=== PATIENT | female | born 1970 | race Caucasian/White ===

== ENCOUNTER 2022-05-11 05:10 | Inpatient (IN) | payer MEDICAID ==
[~2022-05-11] VITALS: Ht 157.5 cm; Wt 64.6 kg
[2022-05-11] VITALS (15 sets, daily range): BP systolic 81–126; BP diastolic 45–88
--- NOTE | 2022-05-11 05:23 | NUR ---
BIB FRIEND FROM STREET WITH C/O ALOC, HEMATEMESIS, RECTAL BLEEDING. C/O ALOC x today. PT IS JAUNDICED. MOANS AND IS RESTLESS. PMHx: GI bleeding, Hematemesis, Anemia MEDS:MELOXICAM
--- NOTE | 2022-05-11 05:23 | NUR ---
PT TAKEN TO BED 11
--- NOTE | 2022-05-11 05:33 | NUR ---
Dr. Leslie examining patient.
--- NOTE | 2022-05-11 05:35 | NUR ---
COVID-19 swabs collected and sent to lab.
[2022-05-11 05:56] LABS: BASOPHILS % (AUTO) 0.3 % (0.0-2.0); LYMPHOCYTES # (AUTO) 2.4 K/uL (2.5-16.5); LYMPHOCYTES % (AUTO) 18.5 % (20.5-51.1); MEAN CORPUSCULAR HEMOGLOBIN 33 pg (27-31); MEAN CORPUSCULAR HGB CONC 33 g/dL (33-37); MEAN CORPUSCULAR VOLUME 101.3 fL (80-94); MONOCYTES # (AUTO) 0.3 K/uL (0.8-1.0); MONOCYTES % (AUTO) 2.5 % (1.7-9.3); NEUTROPHILS # (AUTO) 10.3 K/uL (1.8-7.7); NEUTROPHILS % (AUTO) 78.7 % (42.2-75.2); PLATELET COUNT (AUTO) 75 K/uL (140-450); RED BLOOD CELL COUNT(AUTO) 1.47 MIL/uL (4.20-5.40); RED CELL DISTRIBUTION WIDTH 16.1 % (11.6-13.7); WHITE BLOOD COUNT (AUTO) 13.1 K/uL (4.8-10.8)
[2022-05-11 06:06] LABS: HEMOGLOBIN 4.9 g/dL (12.0-16.0)
[2022-05-11 06:07] LABS: HEMATOCRIT 14.9 % (36-48)
--- NOTE | 2022-05-11 06:11 | NUR ---
Dr. Dominguez examining patient and started mid line left arm, 20 G.
[2022-05-11] MEDS ORDERED: NACL 0.9% 500 ML IV ONE (07:00)
[2022-05-11] MEDS ORDERED: MIDAZOLAM 2 MG/2 ML VIAL IVP ONE ×2 (07:00→08:05)
[2022-05-11 07:02] LABS: ALBUMIN 1.4 g/dL (3.4-5.0); ANION GAP 27.4 (8-16); ASPARTATE AMINOTRANSFERASE 95 U/L (15-37); CARBON DIOXIDE 9.3 mmol/L (21-32); CHLORIDE 106 mmol/L (98-107); CREATININE 3.3 mg/dL (0.6-1.3); GFR ARICAN-AMERICAN 19 mL/min (>90); GLUCOSE 71 mg/dL (74-106); POTASSIUM 3.7 mmol/L (3.5-5.1); SODIUM SERUM 139 mmol/L (136-145); TOTAL BILIRUBIN 9.5 mg/dL (0.0-1.0); UREA NITROGEN, BLOOD 55 mg/dL (7-18)
[2022-05-11 07:06] LABS: ACETAMINOPHEN < 0.5 ug/ml (10-30); SALICYLATE < 2.8 mg/dL (2.8-20.0)
--- NOTE | 2022-05-11 07:17 | NUR ---
Report and continuation of care received from RAMÓN Perez
--- NOTE | 2022-05-11 07:30 | NUR ---
Per blood bank, ETA for packed cells 1 units 30-45 minutes
--- NOTE | 2022-05-11 07:31 | NUR ---
Received patient with BP 116/68, HR 69, RR 16.
--- NOTE | 2022-05-11 07:31 | NUR ---
Patient A&Ox0, restless. Left AC IV site patent with NS 500mL BOLUS.
[2022-05-11] MEDS ORDERED: DEXTROSE 50% 50 ML SYR IVP ONE ×4 (07:37→08:30)
--- NOTE | 2022-05-11 07:37 | NUR ---
Cady CHAN. Dr. Dominguez made aware and orders to be place.
--- NOTE | 2022-05-11 07:38 | NUR ---
IV site to left AC cool to the touch. Dr. Dominguez made aware and new orders to be placed.
[2022-05-11] MEDS ORDERED: GLUCAGON 1 MG VIAL ONE (07:40)
[2022-05-11] MEDS ORDERED: GLUCAGON 1 MG VIAL IM ONE (07:40)
--- NOTE | 2022-05-11 07:43 | NUR ---
Repeat AccuChek 24
[2022-05-11 07:44] LABS: PROTHROMBIN TIME 36.7 secs (10.8-13.4)
--- NOTE | 2022-05-11 07:45 | NUR ---
Dr. Dominguez at bedside
[2022-05-11] MEDS ORDERED: MIDAZOLAM 2 MG/2 ML VIAL ONE (08:01)
--- NOTE | 2022-05-11 08:04 | NUR ---
D50% given per Dr. Dominguez's orders to new IV right forearm 20G. Cady @ 0800
--- NOTE | 2022-05-11 08:05 | NUR ---
Left AC IV d/c and secured with 4x4 gauze/tape.
--- NOTE | 2022-05-11 08:10 | NUR ---
Unable to obtain ABG; RT to reattempt
--- NOTE | 2022-05-11 08:17 | NUR ---
RT at bedside unable to obtain ABG. \
[2022-05-11] MEDS ORDERED: ROCURONIUM 50 MG/5 ML VIAL IV ONE (08:20)
[2022-05-11] MEDS ORDERED: ETOMIDATE 20 MG/10 ML VIAL IVP ONE (08:20)
--- NOTE | 2022-05-11 08:20 | NUR ---
Cady Dominguez at bedside.
--- NOTE | 2022-05-11 08:20 | NUR ---
# 16 FR Marlow catheter with 10 ml utilizing sterile technique. Immediate return of 275 ml viral/cloudy urine noted. Bedside drainage bag placed below level of bladder. Urine sample collected and sent to lab. Pt tolerated procedure well.
[2022-05-11] MEDS ORDERED: INTUBATION KIT MC ONE (08:21)
--- NOTE | 2022-05-11 08:25 | NUR ---
PT INTUBATED D/T AIRWAY PROTECTION. GLYDOSCOPE USED BY DR. KRAUSE TO INSERT A 7.5 ETT LANDIONG AT 22 @ TEETH. BILATERAL CHEST RISE AND BREATH SOUNDS OBSERVED. CARESCAPE VENT STARTED ON AC/VC 500, RR 14, PEEP 5, FiO2 50%. PT TOLERATES THESE SETTINGS WELL. WILL CONTINUE TO MONITOR.
--- NOTE | 2022-05-11 08:26 | NUR ---
Etomidate 5mg IVP to 20G Left FA
--- NOTE | 2022-05-11 08:26 | NUR ---
Rocuronium 60mg IVP to 20G Left FA
--- NOTE | 2022-05-11 08:28 | NUR ---
Intubated ET 22 @ the teeth
--- NOTE | 2022-05-11 08:31 | NUR ---
AccuChek 15
--- NOTE | 2022-05-11 08:33 | NUR ---
Dr. Dominguez at bedside for central line placement
--- NOTE | 2022-05-11 08:34 | NUR ---
D50% given to IV site left FA.
--- NOTE | 2022-05-11 08:57 | NUR ---
RAD at bedside for tube placement
[2022-05-11] MEDS ORDERED: PROPOFOL 1000 MG/100 ML PREMIX 100 ML IV ONE (09:00)
[2022-05-11] MEDS ORDERED: DEXTROSE 10% 250 ML IV SCH (09:00)
--- NOTE | 2022-05-11 09:00 | NUR ---
Anatoly sung in place.
[2022-05-11 09:17] LABS: APPEARANCE,URINE CLOUDY (CLEAR); BILIRUBIN,URINE 3+ (NEGATIVE); BLOOD, URINE 1+ (NEGATIVE); COLOR,URINE BROWN (YELLOW); LEUKOCYTE ESTERASE ,URINE TRACE (NEGATIVE); NITRITE, URINE POSITIVE (NEGATIVE); PH,URINE 5.5 (5.0-9.0); UGLUCOSE TRACE (NEGATIVE)
--- NOTE | 2022-05-11 09:30 | NUR ---
Consent signed per emergent transfusion / ALOC, dual RN witnessed signtures obtaind for agreeing to administration of blood. Blood has been type and crossmatched. Blood sent from blood bank. Information on unit of blood checked against patient wristband at bedside by two nurses. All information matches. Patient or responsible democrat informed of potential complications associated with blood transfusion. Informed of possible transfusion reaction symptoms. Aware of need to notify nurse at once of itching, shortness of breath, flushing, feeling of impending doom, or other symptoms not previously present. Vital signs taken within 5 minutes prior to initiation of transfusion. RN will remain with patient for first 15 minutes of transfusion at which time vital signs will be re-assessed.
[2022-05-11 09:55] LABS: BARBITURATE, URINE NEGATIVE ng/ml (NEG <=200); BENZODIAZEPINE, URINE NEGATIVE ng/mL (NEG <=200); CANNABINOID, URINE POSITIVE ng/mL (NEG <=50); COCAINE, URINE NEGATIVE ng/mL (NEG <=300); OPIATE, URINE NEGATIVE ng/mL (NEG <=2000); PHENCYCLIDINE SCREEN,URINE NEGATIVE ng/mL (NEG <=25)
--- NOTE | 2022-05-11 10:00 | NUR ---
ASSISTED IN TRANSPORT OF PT FROM ER BED #[address] AND RETURNED TO BED #11, VENTILATOR IS PLUGGED INTO A RED OUTLET, AIRWAY IS PATENT
--- NOTE | 2022-05-11 10:02 | NUR ---
PATIENT TAKEN TO CT VIA [facility], ACCOMPANIED BY PRIMARY RN FITZ AND RT JOE, PATIENT ON PORTABLE SAP TECHNICAL DEVELOPER AND PULSE OX.
[2022-05-11 10:09] LABS: RBC,URINE 11-20 (MOD) /HPF (0-5); WBC,URINE 0-5 /HPF (0-5)
[2022-05-11] MEDS ORDERED: PIPERACILLIN/TAZOBACTAM 3.375 GM in DEXTROSE 5% 50 ML IV ONE (10:15)
--- NOTE | 2022-05-11 10:16 | NUR ---
Pt returned from CT accompanied by RT, tax map technician. Patient placed back onto awake overnight monitor.
--- NOTE | 2022-05-11 10:38 | NUR ---
RT at bedside for ABG
--- NOTE | 2022-05-11 10:40 | NUR ---
Per pharmacy, packed cells 1 Unit processing, will recontact when ready
[2022-05-11] MEDS ORDERED: PIPERACILLIN/TAZOBACTAM 3.375 GM VIAL IV ONE (10:44)
[2022-05-11] MEDS ORDERED: ACETAMINOPHEN 325 MG TAB PO PRN (11:00)
[2022-05-11] MEDS ORDERED: HYDROcodone/APAP 7.5/325 MG 1 TAB PO PRN (11:00)
[2022-05-11] MEDS ORDERED: ZOLPIDEM 5 MG TAB PO PRN (11:00)
[2022-05-11] MEDS ORDERED: guaiFENesin DM 200/20 MG-10 ML 10 ML UDC PO PRN (11:00)
[2022-05-11] MEDS ORDERED: KCL 20 MEQ/WATER INJ PREMIX 200 ML IV PRN (11:00)
[2022-05-11] MEDS ORDERED: DEXT 5% /NACL 0.9% 1,000 ML IV SCH ×2 (11:00→11:50)
[2022-05-11] MEDS ORDERED: ONDANSETRON 4 MG/2 ML VIAL IM/IVP PRN (11:00)
[2022-05-11] MEDS ORDERED: DOCUSATE SODIUM 100 MG GELCAP PO PRN (11:00)
--- NOTE | 2022-05-11 11:00 | NUR ---
Rectal 92.9 AccuChek 97
[2022-05-11] MEDS ORDERED: ALBUTEROL SULFATE/IPRATROPIU 3 ML SOL IH PRN (11:05)
--- NOTE | 2022-05-11 11:11 | NUR ---
Patient will be admitted to care of Dr. Hernandez. Admited to ICU-5. Will go to room ICU-5. Belongings list completed. Report to RAMÓN Blanton.
--- NOTE | 2022-05-11 11:12 | NUR ---
TRANSPORTED PT FROM ER 11 TO ICU 5 WITH VENT. 0 COMPLICATIONS.
--- NOTE | 2022-05-11 11:12 | NUR ---
RECEIVED REPORT FROM ED RNFITZ. TEMP 92.9, RECTAL. PT A&OX0, PUPILS SLUGGISH TO LIGHT. ETT TO VENT AC/VC, FIO2 50%, VT 500, R 14, PEEP 5. SR ON MONITOR. 20G IV TO R FA. TRIPLE LUMEN CENTRAL LINE TO R FEMORAL INFUSING PROPOFOL AT 5 MCG/KG/MIN AND D10 AT 50 ML/HR. BOWEL SOUNDS HYPOACTIVE. F/C TO GRAVITY DRAINING DARK ANDREW URINE. GENERALIZED WEAKNESS. JASON HUGGER IN PLACE. STANDARD PRECAUTION. BED IN LOWEST POSITION. CALL LIGHT WITHIN REACH.
--- NOTE | 2022-05-11 11:45 | NUR ---
PATIENT HAS BEEN SCREENED AND CATEGORIZED HIGH NUTRITION RISK. PATIENT WILL BE SEEN WITHIN 1-2 DAYS OF ADMISSION. / [address]
[2022-05-11 12:12] LABS: PROTHROMBIN TIME 41.8 secs (10.8-13.4)
--- NOTE | 2022-05-11 12:14 | NUR ---
DR. COPELAND AT BEDSIDE. ORDERS RECEIVED.
[2022-05-11 12:23] LABS: CHOL/HDL RATIO 5.1 (1-4.5); FREE T4 (FREE THYROXINE) 0.62 ng/dL (0.76-1.46); MAGNESIUM 1.7 mg/dL (1.8-2.4); PHOSPHORUS 5.7 mg/dL (2.5-4.9); THYROID STIMULATING HORMONE 2.55 uIU/mL (0.34-3.74)
[2022-05-11] MEDS ORDERED: PHYTONADIONE 10 MG in NACL 0.9% 50 ML IV SCH (13:00)
[2022-05-11] MEDS: ALBUTEROL SULFATE/IPRATROPIU 3 ML SOL IH SCH ×2 (13:30→19:02)
--- NOTE | 2022-05-11 13:30 | NUR ---
INSERTED NGT TO R NARE. AUSCULTATED AND CONFIRMED POSITIVE PLACEMENT WITH XRAY. CLAMPED AT THIS TIME.
[2022-05-11] MEDS ORDERED: POTASSIUM PHOSPHATE 15 MM in NACL 0.9% 250 ML IV ONE (13:40)
[2022-05-11] MEDS: SODIUM BICARBONATE 8.4% 100 MEQ in DEXTROSE 5% 1,000 ML IV SCH (14:00)
[2022-05-11] MEDS: NOREPINEPHRINE 8 MG in DEXTROSE 5% 250 ML IV PRN (14:05)
[2022-05-11] MEDS ORDERED: MAG SULF 2000 MG/WATER PREMIX 50 ML IV SCH (15:00)
--- NOTE | 2022-05-11 15:00 | NUR ---
INFUSED 1U OF PRBC'S, O+. READ BACK AND VERIFIED WITH YIMI MELGAR. NO FEVER, HIVES, OR REACTION OTHERWISE NOTED.
--- NOTE | 2022-05-11 15:31 | NUR ---
SEEN AND EXAMINED BY DR. FATIMA AT BEDSIDE. ORDERS RECEIVED.
[2022-05-11] MEDS: SODIUM BICARBONATE 8.4% PFS 50 MEQ/50 ML SYR IVP SCH ×2 (16:00→16:23)
[2022-05-11] MEDS: LACTULOSE 20 GM/30 ML UDC PO SCH ×2 (16:31→21:32)
--- NOTE | 2022-05-11 17:00 | NUR ---
FAMILY AT BEDSIDE. UPDATED ON PT'S CONDITION AND POC. NO FURTHER QUESTIONS AT THIS TIME.
[2022-05-11] MEDS: OCTREOTIDE ACETATE 1.25 MG in NACL 0.9% 250 ML IV SCH (17:15)
--- NOTE | 2022-05-11 17:18 | NUR ---
HUNG 1 UNIT OF FFP. O+. READ BACK AND VERIFIED WITH RAMÓN JOEL. NO FEVER, HIVES, OR REACTION OTHERWISE NOTED.
[2022-05-11 17:48] LABS: BASOPHILS % (AUTO) 0.3 % (0.0-2.0); EOSINOPHILS # (AUTO) 0.1 K/uL (0-0.4); HEMATOCRIT 23.1 % (36-48); HEMOGLOBIN 7.5 g/dL (12.0-16.0); LYMPHOCYTES # (AUTO) 0.2 K/uL (2.5-16.5); LYMPHOCYTES % (AUTO) 2.8 % (20.5-51.1); MEAN CORPUSCULAR HEMOGLOBIN 31 pg (27-31); MEAN CORPUSCULAR HGB CONC 32 g/dL (33-37); MEAN CORPUSCULAR VOLUME 94.8 fL (80-94); MONOCYTES # (AUTO) 0.2 K/uL (0.8-1.0); MONOCYTES % (AUTO) 2.7 % (1.7-9.3); NEUTROPHILS # (AUTO) 7.6 K/uL (1.8-7.7); NEUTROPHILS % (AUTO) 93.2 % (42.2-75.2); PLATELET COUNT (AUTO) 49 K/uL (140-450); RED BLOOD CELL COUNT(AUTO) 2.44 MIL/uL (4.20-5.40); RED CELL DISTRIBUTION WIDTH 19.6 % (11.6-13.7); WHITE BLOOD COUNT (AUTO) 8.2 K/uL (4.8-10.8)
[2022-05-11] MEDS ORDERED: PIPERACILLIN/TAZOBACTAM 3.375 GM in DEXTROSE 5% 50 ML IV SCH (18:00)
[2022-05-11] MEDS: PIPERACILLIN/TAZOBACTAM 2.25 GM in DEXTROSE 5% 50 ML IV SCH (18:33)
--- NOTE | 2022-05-11 18:40 | NUR ---
FAMILY AT BEDSIDE. UPDATED ON POC. NO FURTHER QUESTIONS AT THIS TIME.
[2022-05-11 19:11] LABS: ANION GAP 26.2 (8-16); CARBON DIOXIDE 12.6 mmol/L (21-32); CREATININE 3.6 mg/dL (0.6-1.3); POTASSIUM 3.8 mmol/L (3.5-5.1)
[2022-05-11] MEDS: ERYTHROMYCIN 100 MG in NACL 0.9% 100 ML IV SCH (19:15)
--- NOTE | 2022-05-11 19:28 | NUR ---
ENDORSED REPORT TO SUPERVISORY HISTORIAN RAMÓN GRANT FOR CONTINUITY OF CARE.
--- NOTE | 2022-05-11 20:15 | NUR ---
@1924 Assumed pt care report received from Lashay MELGAR at the bedside, met pt unresponsive no movement in all extremities, low blood pressure ongoing Levophed drip, ., Propofol turned off due to pt's condition, no gag reflex no cough oral care done,, OGT placement checked and verified by auscultation, distended abdomen, trujillo to gravity with small dark viral urine, lots of secretion via; OGT coffee ground emesis, connected to suction output 300cc Pt's sister at the bedside also , very worried about pt's condition because pt's dodctor told her already that pt's might not "make it" more education on care plan, treatments, she verbalized understanding ongoing support of pt and family
--- NOTE | 2022-05-11 20:24 | NUR ---
Notified Dr Boyle critical lab result lactic acid 12.2, also give extrensive information about the pt's medical hx, condiition on admission, ongoing treatments, low blood pressure, intubated vent settings, last ABG result, chest xray, labs all IV medications order received to do ABG, albumin 5% in 250ML X2,.
[2022-05-11] MEDS ORDERED: ALBUMIN HUMAN 5 % 250 ML IV SCH (20:25)
[2022-05-11] MEDS ORDERED: ALBUMIN HUMAN 5 % 250 ML IV ONE (20:25)
[2022-05-11] MEDS: PANTOPRAZOLE 40 MG INJ VIAL IVP SCH (21:32)
[2022-05-11] MEDS ORDERED: VASOPRESSIN 20 UNITS/ML VIAL ONE (22:01)
[2022-05-11] MEDS: VASOPRESSIN 20 UNITS in NACL 0.9% 250 ML IV SCH (22:34)
[2022-05-11] MEDS ORDERED: DOPPLER MC ONE (23:00)
--- NOTE | 2022-05-11 23:52 | NUR ---
Pt's daughter called, if she could can come and visit as at this time. Verified from RALEIGH MELGAR also called p's sister Lisy to let pt's daughter know that is okay for her to visit, Lisy said that pt's daughter is feeling guilty because of their family dynamics
[2022-05-12] VITALS (22 sets, daily range): BP systolic 0–143; BP diastolic 0–107
[2022-05-12] MEDS: SODIUM BICARBONATE 8.4% 100 MEQ in DEXTROSE 5% 1,000 ML IV SCH (00:34)
[2022-05-12] MEDS: PIPERACILLIN/TAZOBACTAM 2.25 GM in DEXTROSE 5% 50 ML IV SCH ×4 (00:35→17:10)
[2022-05-12] MEDS: ERYTHROMYCIN 100 MG in NACL 0.9% 100 ML IV SCH ×4 (00:35→17:54)
[2022-05-12] MEDS: NOREPINEPHRINE 8 MG in DEXTROSE 5% 250 ML IV PRN ×2 (00:49→08:47)
--- NOTE | 2022-05-12 01:59 | NUR ---
pt's daughter visiting at the beside education on care plan disease process, treatments needs more education, pt'e eyes closed but moves upper extremities generalized weakness still ventilated vitasls signs stable
--- NOTE | 2022-05-12 04:30 | NUR ---
Complete bed bath with CHG, linen changed pt tolerates very well , skin care scattered large area of ecchymosis, skin jaundiced foam to sacral coccyx oral care and suctioned.
[2022-05-12 05:06] LABS: ANION GAP 29.4 (8-16); CREATININE 3.6 mg/dL (0.6-1.3); POTASSIUM 3.7 mmol/L (3.5-5.1)
[2022-05-12 05:08] LABS: BASOPHILS % (AUTO) 0.1 % (0.0-2.0); EOSINOPHILS # (AUTO) 0.1 K/uL (0-0.4); EOSINOPHILS % (AUTO) 0.9 % (0.0-4.0); LYMPHOCYTES # (AUTO) 0.4 K/uL (2.5-16.5); LYMPHOCYTES % (AUTO) 3.7 % (20.5-51.1); MEAN CORPUSCULAR HEMOGLOBIN 31 pg (27-31); MEAN CORPUSCULAR HGB CONC 33 g/dL (33-37); MEAN CORPUSCULAR VOLUME 94.5 fL (80-94); MONOCYTES # (AUTO) 0.2 K/uL (0.8-1.0); MONOCYTES % (AUTO) 2.4 % (1.7-9.3); NEUTROPHILS # (AUTO) 9.2 K/uL (1.8-7.7); NEUTROPHILS % (AUTO) 92.9 % (42.2-75.2); PLATELET COUNT (AUTO) 25 K/uL (140-450); RED BLOOD CELL COUNT(AUTO) 1.97 MIL/uL (4.20-5.40); RED CELL DISTRIBUTION WIDTH 21.2 % (11.6-13.7); WHITE BLOOD COUNT (AUTO) 9.9 K/uL (4.8-10.8)
[2022-05-12] MEDS: OCTREOTIDE ACETATE 1.25 MG in NACL 0.9% 250 ML IV SCH (05:52)
[2022-05-12 06:55] LABS: CARBON DIOXIDE 9.3 mmol/L (21-32)
[2022-05-12 06:57] LABS: HEMATOCRIT 18.6 % (36-48); HEMOGLOBIN 6.1 g/dL (12.0-16.0)
[2022-05-12] MEDS: ALBUTEROL SULFATE/IPRATROPIU 3 ML SOL IH SCH ×2 (07:00→13:09)
--- NOTE | 2022-05-12 07:18 | NUR ---
Change of shift report at the bedside given to Catherine MELGAR , as at this time pt is till critical condition. but vitals stable afebrile.
--- NOTE | 2022-05-12 07:21 | NUR ---
@0961 Dr Banks notified via text message because of low urine output about 20cc via trujillo. but no call back received yet as at this time. Also mentioned this in report to Catherine MELGAR.
--- NOTE | 2022-05-12 07:22 | NUR ---
Via telephone text messages notified Dr Hernandez andJermain Banks about pt's critical labs HGB 6 HCT 18.6, no urine output, CO2 9.3 no infection control MD on this care, lactic acid 13,
--- NOTE | 2022-05-12 07:30 | NUR ---
RECEIVED PT ON ACVC 500, RR14, +5, 50%. WHEELS ARE LOCKED AND ALARMS ARE SET AND AUDIBLE, AMBUBAG AT BEDSIDE. NO RESPIRATORY DISTRESS NOTED.
--- NOTE | 2022-05-12 07:30 | NUR ---
RECEIVED PT AWAKE AND LETHARGIC. ABLE TO MOVE HEAD TOWARDS SOUND OF VOICE. ET TUBE TO VENT SETTINGS AC/VC VT 500 RATE 14 PEEP 5 FIO2@40%. SINUS RHYTHM ON MONITOR. NG-TUBE TO RIGHT NARE. TRIPLETT CATHETER IN PLACE TO BSD. MACHINE HAND NURSE REPORTED NO URINE OUTPUT AND DR. PETEY GILL. CENTRAL LINE ON RIGHT FEMORAL INTACT AND PATENT INFUSING LEVOPHED @18 MCG/MIN, VASOPRESSIN @ 0.01 UNITS/MIN, OCTREOTIDE @ 100MCG/HR AND SODIUM BICARB @100ML/HR. REPORT RECEIVED FROM MACHINE HAND NURSE RUDY THAT REPORTED CRITICAL LAB VALUES TO DR. COPELAND AND NEW ORDERS RECEIVED. EXTREMITIES COOL TO TOUCH. JASON HUGGER IN PLACE. SAFETY PRECAUTIONS IN PLACE.
--- NOTE | 2022-05-12 07:55 | NUR ---
Notified Dr Cardenas about pt's critical results from the CO 9.3, hgb 6 hct 18.6, very low urine output order received to transfuse 1 unit PRBC, 1 amp of Sodium bicarbonate IVP .
[2022-05-12] MEDS ORDERED: SODIUM BICARBONATE 8.4% PFS 50 MEQ/50 ML SYR IVP SCH ×2 (08:00→12:45)
[2022-05-12] MEDS: LACTULOSE 20 GM/30 ML UDC PO SCH ×3 (08:06→16:54)
[2022-05-12] MEDS: PANTOPRAZOLE 40 MG INJ VIAL IVP SCH (08:06)
[2022-05-12] MEDS ORDERED: SODIUM BICARBONATE 8.4% 150 MEQ in DEXTROSE 5% 1,000 ML IV SCH (08:45)
[2022-05-12] MEDS ORDERED: LACTULOSE 20 GM/30 ML UDC PO SCH (09:00)
[2022-05-12] MEDS ORDERED: PANTOPRAZOLE 40 MG TABEC PO SCH (09:00)
[2022-05-12] MEDS: MIDAZOLAM 5 MG/5 ML VIAL ONE ×2 (10:14→11:05)
[2022-05-12] MEDS ORDERED: fentaNYL citrate 0.05 MG/ML VIAL ONE (10:14)
--- NOTE | 2022-05-12 10:38 | NUR ---
05/12/22 RD INITIAL ASSESSMENT COMPLETED PLEASE REFER TO NUTRITION ASSESSMENT UNDER CARE ACTIVITY FOR ESTIMATED NUTRITIONAL NEEDS. 1. IF PT REMAINS INTUBATED AND MEDICALLY APPROPRIATE TO INITIATE TF, RECOMMEND NEPRO CARBSTEADY WITH A GOAL RATE OF 35 ML/HR -FWF: 150 ML Q6H OR PER MD -START AT 10 ML/HR AND INCREASE BY 10 ML Q4H TOLERATED -WILL PROVIDE 1512 KCAL AND 68 GM PROTEIN, MEETING 100% OF ESTIMATED NUTRIENT NEEDS 2. IF EXTUBATED, RECOMMEND SWALLOW EVAL BEFORE ADVANCING DIET 3. RD TO FOLLOW-UP 2-3 DAYS, HIGH RISK REVIEWED BY [address]
--- NOTE | 2022-05-12 11:00 | NUR ---
DR. LE AT BEDSIDE EXAMINING PT.
--- NOTE | 2022-05-12 11:10 | NUR ---
EGD DONE AT BEDSIDE WT DR. FATIMA.
--- NOTE | 2022-05-12 11:25 | NUR ---
SEEN AND EXAMINED BY DR. GIRON. Addendum: 05/12/22 at 1818 by Catherine Felix RN PER DR. GIRON, PT HAS LIVER CIRRHOSIS SO SHE WILL NOT BE A GOOD CANDIDATE FOR HEMODIALYSIS.
[2022-05-12] MEDS ORDERED: MAGNESIUM CITRATE 300 ML BTL PO SCH (11:45)
[2022-05-12] MEDS ORDERED: PHENYLEPHRINE 10 MG in NACL 0.9% 250 ML IV PRN (12:20)
[2022-05-12] MEDS ORDERED: VANCOMYCIN PER PHARMACY MC PRN (12:20)
--- NOTE | 2022-05-12 12:25 | NUR ---
DR. COPELAND AT BEDSIDE EXAMINING PT. DR. COPELAND TALKED TO SISTER ON THE PHONE REGARDING PT'S POOR PROGNOSIS.
[2022-05-12] MEDS ORDERED: CALCIUM GLUC 1 GM/50 mL NS BAG 50 ML IV SCH ×2 (12:40→13:30)
--- NOTE | 2022-05-12 12:50 | NUR ---
Reported ABG results to Dr. Cardenas. Per Dr. Cardenas, continue with current orders.
[2022-05-12] MEDS: HYDROCORTISONE NA SUCC 100 MG/2 ML VIAL IV SCH ×2 (13:31→17:09)
[2022-05-12] MEDS ORDERED: NOREPINEPHRINE 16 MG in DEXTROSE 5% 250 ML IV PRN (13:50)
[2022-05-12] MEDS ORDERED: VANCOMYCIN 1,000 MG in DEXTROSE 5% 250 ML IV SCH (14:00)
--- NOTE | 2022-05-12 15:00 | NUR ---
DR. LE SPOKE TO DAUGHTER REGARDING CONDITION OF PT AND CODE STATUS AND DAUGHTER WANTS DNR.
[2022-05-12] MEDS ORDERED: PHENYLEPHRINE 40 MG in NACL 0.9% 250 ML IV PRN (15:40)
[2022-05-12] MEDS ORDERED: OCTREOTIDE ACETATE 1.25 MG in NACL 0.9% 250 ML IV SCH (16:00)
[2022-05-12] MEDS: VASOPRESSIN 20 UNITS in NACL 0.9% 250 ML IV SCH (17:20)
--- NOTE | 2022-05-12 18:30 | NUR ---
PT WITH Rashi ROMAN ON MONITOR. CALLED DAUGHTER AND FAMILY TO COME IN TO VISIT PATIENT. Addendum: 05/12/22 at 1856 by Catherine Felix RN UNABLE TO OBTAIN BLOOD PRESSURE.
--- NOTE | 2022-05-12 18:32 | NUR ---
RT AT BEDSIDE.
--- NOTE | 2022-05-12 19:13 | NUR ---
Assumed pt care report received,from EDNA EMLGAR, checked on the pt no heart rhythm, still on ventilator but no sign of breadth, no movement in her eyes, no movement in all extremities, no palpable pulses, not even audible with doppler, all medications still infusing max doses of Levophed, Vasopressin, Neosynephrine, closed family m mem+bers at the bedside. EKG asystole noted as 1902. cistern room working supervisor DMITRY MELGAR notified to pronounce.
--- NOTE | 2022-05-12 19:15 | NUR ---
ENDORSED TO ENROLLMENT REPRESENTATIVE NURSE RUDY. PT WITH NO HEART RATE AT 1900. GASTROENTEROLOGY PHYSICIAN INFORMED. FAMILY AT BEDSIDE.
--- NOTE | 2022-05-12 19:40 | NUR ---
Nitin bangurahousekeeper cleaning cooking pronounced pt's , family at the bedside ongoing support education on post mortem, for them to prepare pt for mortuary pickers material handlers encouraged them to ask questions, also waiting for the family priests to arrive for spiritual closure.
--- NOTE | 2022-05-12 20:19 | NUR ---
Notified [facility] about pt's spoke to MARLI pt's body released as not suitable for organ donation [phone] [phone]
--- NOTE | 2022-05-12 20:21 | NUR ---
Family's textile colorist dyer at the bedside praying over the body and surrounded with family members.
--- NOTE | 2022-05-12 20:25 | NUR ---
first call to Chief Engineer'S Helper's office notified pt's spoke to Berenice
--- NOTE | 2022-05-12 20:32 | NUR ---
Notified Dr Myers of the pt's via the exchanged
--- NOTE | 2022-05-12 20:45 | NUR ---
Notified Dr Mitzy Crain about pt's
--- NOTE | 2022-05-12 20:56 | NUR ---
Left a message on Dr Forbes's cell phone number that pt .
--- NOTE | 2022-05-12 20:57 | NUR ---
Dr Lewis also notified via the message exchange.
--- NOTE | 2022-05-12 21:04 | NUR ---
Notified Dr Bennett about pt's via the call centre exchange this ammonium nitrate neutralizer for Dr Banks.
--- NOTE | 2022-05-12 21:32 | NUR ---
Gwen Chiu from [facility] office called back updates on pts' condition on admission, treatments she was receiving, DNR code status by family the body released not a sack maker's case
--- NOTE | 2022-05-12 22:15 | NUR ---
Arrangement made by pt's family for Mortuary picked up by [facility] [phone] body released signed by pt's daughter Rabia Siva [phone] and ETA will be in 2 hours
[2022-05-13 00:23] LABS: T4 (THYROXINE) 1.7 ug/dL (4.5 - 12.0)
--- NOTE | 2022-05-13 01:14 | NUR ---
Patient's daughter body picked up by Moshe from [facility] also notified RENETTA welsh's daughter
== END 2022-05-12 19:03 | DRG 720 ==
LOC: MED 05:10 → MIC 10:32
PROVIDERS: ADMIT Family Medicine; ATTEND Family Medicine
PROC: 5A1945Z Respiratory Ventilation, 24-96 Consecutive Hours (ICD-10-PCS; principal; 2022-05-11)
PROC: 06HY33Z Insertion of Infusion Device into Lower Vein, Percutaneous Approach (ICD-10-PCS; 2022-05-11)
PROC: B54BZZA Ultrasonography of Right Lower Extremity Veins, Guidance (ICD-10-PCS; 2022-05-11)
PROC: 30233K1 Transfusion of Nonautologous Frozen Plasma into Peripheral Vein, Percutaneous Approach (ICD-10-PCS; 2022-05-11)
PROC: 30233N1 Transfusion of Nonautologous Red Blood Cells into Peripheral Vein, Percutaneous Approach (ICD-10-PCS; 2022-05-11)
PROC: 0BH17EZ Insertion of Endotracheal Airway into Trachea, Via Natural or Artificial Opening (ICD-10-PCS; 2022-05-11)
PROC: 0DJ08ZZ Inspection of Upper Intestinal Tract, Via Natural or Artificial Opening Endoscopic (ICD-10-PCS; 2022-05-12)
DX: A41.9 Sepsis, unspecified organism (principal); J96.01 Acute respiratory failure with hypoxia; D65 Disseminated intravascular coagulation [defibrination syndrome]; K72.00 Acute and subacute hepatic failure without coma; J69.0 Pneumonitis due to inhalation of food and vomit; G92.8 Other toxic encephalopathy; N17.0 Acute kidney failure with tubular necrosis; K92.2 Gastrointestinal hemorrhage, unspecified; E43 Unspecified severe protein-calorie malnutrition; N39.0 Urinary tract infection, site not specified; E86.0 Dehydration; R77.8 Other specified abnormalities of plasma proteins; Z20.822 Contact with and (suspected) exposure to COVID-19; F15.10 Other stimulant abuse, uncomplicated; K74.60 Unspecified cirrhosis of liver; E87.2 Acidosis; D53.9 Nutritional anemia, unspecified; Z68.26 Body mass index [BMI] 26.0-26.9, adult
CPT/HCPCS: 36415; 36430; 36600; 70450; 71045; 76770; 80048; 80053; 80305; 81001; 82140; 82150; 82803; 83036; 83605; 83690; 83735; 83930; 84100; 84436; 84439; 84443; 84479; 84484; 85025; 85610; 85730; 86886; 86900; 86901; 86920; 87040; 87070; 87081; 87086; 87186; 87205; 89220; 93005; 94002; 94003; 94640; 96365; 96372; 96375; 99291; 99292; C9113; G0480; G0482; J0610; J1364; J1610; J1720; J2250; J2354; J2370; J2543; J2704; J3010; J3370; J3430; J3475; J3490; J7030; J7060; P9016; P9017; P9041; Q0092